=== PATIENT | female | born 1960 | race Caucasian/White ===

== ENCOUNTER 2016-09-24 08:29 | Day surgery (SDC) | payer BC ==
[2016-09-24] MEDS ORDERED: LIDOCAINE 2% MDV (20MG/ML) 20ML VIAL IV ONE (12:00)
[2016-09-24] MEDS ORDERED: PROPOFOL 10 MG/ML VIAL IV ONE (12:00)
--- NOTE | 2016-09-28 10:20 | Operative Note ---
DATE OF SURGERY: 09/24/2016 REFERRING PROVIDER: Dr. Sal Moser PREOPERATIVE DIAGNOSIS: Dysphagia and heartburn. POSTOPERATIVE DIAGNOSES: 1. Nonerosive antral gastritis. 2. Gastric fundic polyps. 3. Irregular Z-line. OPERATION: ESOPHAGOGASTRODUODENOSCOPY with biopsy and Higgins dilation. PROCEDURE: After informed consent was obtained, the patient was placed in the left lateral decubitus position in the endoscopy suite, sedated and monitored by the Department of Anesthesia. Once sedated, a well-lubricated XUR050 gastroscope was placed in the posterior oropharynx and under direct visualization passed to the proximal esophagus. The endoscope was advanced to the proximal, mid and distal esophagus. The esophagus and GE junction were unremarkable other than the Z-line, which was irregular and located at the level of the diaphragmatic hiatus. There was no hiatal hernia noted. The gastric body and antrum were inspected. There were mild erythematous changes in the antrum. The pylorus, duodenal bulb and sweep were unremarkable. J-turn views of the proximal stomach revealed several small polyps, which were biopsied. The antrum was biopsied. The GE junction was biopsied. At this point, a 52-[place] Higgins dilator was passed through the GE junction and removed. There was minimal to resistance noted. The endoscope was reinserted. There was no evidence of any esophageal tear seen. Fluid and blood from the biopsy sites were evacuated from the gastric fundus. The endoscope was removed after rinsing had been performed and no persistent bleeding sites were noted RECOMMENDATIONS: The patient should continue her current medical program. As always, thank you for allowing me to participate in the health care of your patients. Zoltan Ponce DO CC: SAL Browning
== END 2016-09-24 10:52 | disposition home or self-care (01) ==
LOC: HOP 08:29
PROVIDERS: ATTEND Internal Medicine Gastroenterology
DX: R13.19 Other dysphagia (principal); K29.30 Chronic superficial gastritis without bleeding; D13.1 Benign neoplasm of stomach; K31.89 Other diseases of stomach and duodenum

== ENCOUNTER 2017-09-13 08:44 | Day surgery (SDC) | payer BC ==
[~2017-09-13 08:44] MED LIST: ACETAMINOPHEN 1,000 MG/100 ML BTL IV ONE; FAMOTIDINE 20MG TABLET PO ONE; MECLIZINE 25 MG TABLET PO ONE; METOCLOPRAMIDE 10 MG TABLET PO ONE
[2017-09-13] MEDS ORDERED: PROPOFOL 10 MG/ML VIAL IV ONE (08:45)
[2017-09-13] MEDS ORDERED: BUPIVACAINE 0.75% W/EPI MPF 30ML VIAL IVP ONE (08:45)
[2017-09-13] MEDS ORDERED: HYDROCODONE/APAP 5/325MG TABLET PO ONE (08:45)
[2017-09-13] MEDS ORDERED: NEOSTIGMINE 1 MG/1 ML,10ML VIAL IV ONE (08:45)
[2017-09-13] MEDS ORDERED: METOCLOPRAMIDE HCL 10 MG/2 ML VIAL IVP ONE (08:45)
[2017-09-13] MEDS ORDERED: ROCURONIUM BROMIDE 50MG/5ML VIAL IV ONE (08:45)
[2017-09-13] MEDS ORDERED: GLYCOPYRROLATE 0.2 MG/ML ML IV ONE (08:45)
[2017-09-13] MEDS ORDERED: FENTANYL PF 100MCG/2ML VIAL IV ONE (08:45)
[2017-09-13] MEDS ORDERED: ONDANSETRON HCL IV 4 MG/2 ML VIAL IVP ONE (08:45)
[2017-09-13] MEDS ORDERED: MIDAZOLAM HCL 2MG/2ML VIAL IV ONE (08:45)
[2017-09-13] MEDS ORDERED: LIDOCAINE 2% MDV (20MG/ML) 20ML VIAL IV ONE (08:45)
[2017-09-13] MEDS ORDERED: SUCCINYLCHOLINE 20 MG/ML 10ML IVP ONE (08:45)
[2017-09-13] MEDS ORDERED: SCOPOLAMINE 1 PATCH TDSY TD ONE (08:45)
--- NOTE | 2017-09-14 09:50 | Operative Note ---
DATE OF SURGERY: 09/13/2017 Surgeon: Chris Fung DO PREOPERATIVE DIAGNOSIS: Cholelithiasis and chronic cholecystitis. POSTOPERATIVE DIAGNOSIS: Cholelithiasis and chronic cholecystitis. OPERATION: Laparoscopic cholecystectomy. Indication: The patient is a 56-year-old female whom I saw in the clinic with ongoing right subcostal postprandial pain. Imaging studies were consistent with cholelithiasis. We did discuss cholecystectomy versus medical management. She desired surgical intervention. Risks include but are not limited to bleeding, infection, ductal injury, possible conversion to open, postoperative bile leak. She understood this fully. PROCEDURE: Therefore, after consent was signed and questions answered, she was taken to the operating room and placed in a supine position. General anesthesia was administered per the department of anesthesia. The patient's abdomen was prepped and draped in the usual sterile fashion. The patient had undergone a prior midline laparotomy incision. Therefore, I did elect to go in a supraumbilical position. Therefore, this area was anesthetized with a total of 3 mL of 0.25% Sensorcaine with epinephrine. A 2 cm incision was made. This was carried down to the anterior rectus fascia. This was incised. Belinda clamps were placed on the fascial edges and brought up into the wound. Stay sutures of 0 Vicryl were placed. Posterior rectus sheath was identified and incised. The peritoneal cavity was entered bluntly. At this time, a 10 mm blunt Trevor port was placed. Adequate pneumoperitoneum was established. Under direct visualization, additional 5 mm epigastric and two 5 mm right subcostal ports were placed. The patient was rotated into reverse Trendelenburg, rotation to left. The gallbladder was identified. This was retracted in a cephalad and lateral direction opening up the angle of Calot. There were some dense anterior adhesions which were taken down bluntly. Due to the paucity of visceral fat, I could clearly see the common bile duct medially. This was avoided at all times. The hepatocystic triangle was thoroughly dissected out. The distal half of the gallbladder was released from the cystic plate elongating a retro-cystic window. The cystic duct and cystic artery were clearly identified. There was no aberrant anatomy, no posterior ductal structures. Each one was doubly clipped and cut in a standard fashion. Gallbladder was then taken off the liver bed with Wilber harmonic. At this time, the right upper quadrant was rechecked and found to be hemostatic. No bleeding. No bile leak. No bowel injury noted. The patient was leveled out. The pneumoperitoneum was released. All ports were removed. The fascia was closed with 0 Vicryl in a [id number] fashion. The skin of all ports was closed with 4-0 Vicryl. The patient was taken to the recovery room in satisfactory condition. HUGH
== END 2017-09-13 12:09 | disposition home or self-care (01) ==
LOC: SUR 08:44
PROVIDERS: ATTEND Surgery
DX: K80.10 Calculus of gallbladder with chronic cholecystitis without obstruction (principal)
CPT/HCPCS: 47562; 00790; J2405; J3010; J3490; J0330; J2710; J2765

== ENCOUNTER 2018-01-20 07:37 | Day surgery (SDC) | payer BC ==
[2018-01-20] MEDS ORDERED: FENTANYL PF 100MCG/2ML VIAL IV ONE (07:38)
[2018-01-20] MEDS ORDERED: PROPOFOL 10 MG/ML VIAL IV ONE (07:38)
[2018-01-20] MEDS ORDERED: ONDANSETRON HCL IV 4 MG/2 ML VIAL IVP ONE (07:38)
[2018-01-20] MEDS ORDERED: LIDOCAINE 2% MDV (20MG/ML) 20ML VIAL IV ONE (07:38)
--- NOTE | 2018-01-21 09:30 | Operative Note ---
DATE OF SURGERY: 01/20/2018 OPERATION: ESOPHAGOGASTRODUODENOSCOPY with biopsy. PREOPERATIVE DIAGNOSIS: Salvador's. POSTOPERATIVE DIAGNOSIS: Short-segment Salvador's. PROCEDURE: After informed consent was obtained from the patient, she was placed in the left lateral decubitus position in the endoscopy suite, sedated and monitored by the department of anesthesia. A well-lubricated [id number] gastroscope was placed in the posterior oropharynx and under direct visualization passed to the proximal esophagus. The endoscope was advanced through the proximal, mid, and distal esophagus. The GE junction was slightly irregular. No ulcers, erosions, strictures, varices, or mass lesions were seen. The remainder of the esophagus appeared normal. The gastric body, antrum, pylorus, duodenal bulb and sweep were otherwise unremarkable. J-turn views of the proximal stomach were unrevealing. The endoscope was straightened and retracted to the GE junction where biopsies were obtained in 4-quadrant fashion. No excessive bleeding was noted. The endoscope was removed from the patient with no new findings noted. RECOMMENDATIONS: The patient shoulder avoid tobacco products. Should continue her daily proton pump inhibitor therapy. If no dysplasia is found, a repeat upper endoscopy in 3 years would be suggested. As always, thank you for allowing me to participate in the healthcare of your patients. CC: Dr. Nelly REESE
== END 2018-01-20 09:23 | disposition home or self-care (01) ==
LOC: HOP 07:37
PROVIDERS: ATTEND Internal Medicine Gastroenterology
DX: K22.70 Barrett's esophagus without dysplasia (principal); E78.00 Pure hypercholesterolemia, unspecified
CPT/HCPCS: 43235; 00731; J2405; J3010

== ENCOUNTER 2018-03-23 12:07 | Emergency (ER) | payer BC ==
--- NOTE | 2018-03-23 12:30 | Emergency Department Record ---
History of Present Illness - General Chief Complaint: Shortness of breath Stated Complaint: SOB Time Seen by Provider: 03/23/18 12:19 Source: Patient, RN notes reviewed Mode of Arrival: Ambulatory - History of Present Illness Initial Comments: sob and right leg swollen 3 weeks ago and 3 days ago had a venous dopler which showed a DVT and she is worried about her breathing and wants to be checked for a PE. Pulse ox good and her leg edema is better . She is on xarelto 15 mg twice a day currently. Onset/Timin -: Week(s) Consistency: Constant Improves With: Nothing Worsens With: Nothing Known History Of: DVT Context: Other Associated Symptoms: Denies other symptoms Treatments Prior to Arrival: Other - Related Data Home Medications Medication Instructions Recorded Confirmed Last Taken Rivaroxaban [Xarelto] 15 mg PO BID 03/23/18 03/23/18 03/23/18 Allergies Allergy/AdvReac Type Severity Reaction Status Date / Time Sulfa (Sulfonamide Allergy Mild HIVES Verified 03/23/18 12:21 Antibiotics) morphine AdvReac NAUSEA AND Verified 03/23/18 12:21 VOMITING Travel Screening - Travel/Exposure Within Last 30 Days Have you traveled within the last 30 days?: No - Travel/Exposure Within Last Year Have you traveled outside the [place] in the last year?: No - Additonal Travel Details Have you been exposed to anyone with a communicable illness?: No Review of Systems Reviewed: No additional complaints except as noted below Constitutional: Reports: As per HPI. Denies: Chills, Fever, Malaise, Night sweats, Weakness, Weight change Eyes: Reports: As per HPI. Denies: Eye discharge, Eye pain, Photophobia, Vision change ENT: Reports: As per HPI. Denies: Congestion, Dental pain, Ear pain, Epistaxis , Hearing loss, Throat pain Respiratory: Reports: As per HPI, Dyspnea. Denies: Cough, Hemoptysis, Stridor, Wheezes Cardiovascular: Reports: As per HPI. Denies: Arrhythmia, Chest pain, Dyspnea on exertion, Edema, Murmurs, Orthopnea, Palpitations, Paroxysmal nocturnal dyspnea, Rheumatic Fever, Syncope Endocrine: Reports: As per HPI. Denies: Fatigue, Heat or cold intolerance, Polydipsia, Polyuria Gastrointestinal: Reports: As per HPI. Denies: Abdominal pain, Constipation, Diarrhea, Hematemesis, Hematochezia, Melena, Nausea, Vomiting Genitourinary: Reports: As per HPI. Denies: Abnormal menses, Discharge, Dyspareunia, Dysuria, Frequency, Hematuria, Incontinence, Retention, Urgency Musculoskeletal: Reports: As per HPI. Denies: Arthralgia, Back pain, Gout, Joint swelling, Myalgia, Neck pain Skin: Reports: As per HPI. Denies: Bruising, Change in color, Change in hair/ nails, Lesions, Pruritus, Rash Neurological: Reports: As per HPI. Denies: Abnormal gait, Confusion, Headache, Numbness, Paresthesias, Seizure, Tingling, Tremors, Vertigo, Weakness Psychiatric: Reports: As per HPI. Denies: Anxiety, Auditory hallucinations, Depression, Homicidal thoughts, Suicidal thoughts, Visual hallucinations Hematological/Lymphatic: Reports: As per HPI. Denies: Anemia, Blood Clots, Easy bleeding, Easy bruising, Swollen glands Past Medical History - SOCIAL HISTORY Smoking Status: Never smoker Alcohol Use: Occasional Drug Use: None - RESPIRATORY Hx Respiratory Disorders: No - CARDIOVASCULAR Hx Cardio Disorders: Yes Hx Deep Vein Thrombosis: Yes - NEURO Hx Neuro Disorders: No - GI Hx GI Disorders: Yes Hx Abdominal Pain: No Hx Liver Disease: Yes (fatty liver) Comment:: barretts esophagus - Hx Genitourinary Disorders: Yes Hx Kidney Stones: Yes (currently- having shock wave tx 01/11/18) Comment:: s/p hyst - ENDOCRINE Hx Endocrine Disorders: No - MUSCULOSKELETAL Hx Musculoskeletal Disorders: No - PSYCH Hx Psych Problems: No - HEMATOLOGY/ONCOLOGY Hx Hematology/Oncology Disorders: No Family Medical History Any Significant Family History?: No Hx Cancer: Mother, Brother/Sister *Cancer Comment: mother & brother-leukemia, sister-breast Hx Heart Disease: Father, Children Hx HTN: Father Hx Resp Disorders: Father Physical Exam - General General Appearance: Alert, Oriented x3, Cooperative, No acute distress - Head Head exam: Normal inspection - Eye Eye exam: Normal appearance, PERRL Pupils: Normal accommodation - ENT ENT exam: Normal exam, Mucous membranes moist, Normal external ear exam, Normal orophraynx, TM's normal bilaterally Ear exam: Normal external inspection. negative: External canal tenderness Nasal Exam: Normal inspection. negative: Discharge, Sinus tenderness Mouth exam: Normal external inspection, Tongue normal Teeth exam: Normal inspection. negative: Dental caries Throat exam: Normal inspection. negative: Tonsillar erythema, Tonsillar exudate - Neck Neck exam: Normal inspection, Full ROM. negative: Tenderness - Respiratory Respiratory exam: Normal lung sounds bilaterally. negative: Respiratory distress - Cardiovascular Cardiovascular Exam: Regular rate, Normal rhythm, Normal heart sounds - GI/Abdominal GI/Abdominal exam: Soft, Normal bowel sounds. negative: Tenderness - Rectal Rectal exam: Deferred - exam: Deferred - Extremities Extremities exam: Normal inspection, Full ROM, Normal capillary refill. negative: Tenderness - Back Back exam: Reports: Normal inspection, Full ROM. Denies: Muscle spasm, Rash noted, Tenderness - Neurological Neurological exam: Alert, Normal gait, Oriented X3, Reflexes normal - Psychiatric Psychiatric exam: Normal affect, Normal mood - Skin Skin exam: Dry, Intact, Normal color, Warm Course Vital Signs 03/23/18 12:14 Temperature 98.0 F Pulse Rate 76 Respiratory 18 Rate Blood Pressure 150/78 Pulse Ox 97 Medical Decision Making - Data Complexity MDM Data: X-Ray Ordered and/or Reviewed (CT chest negative for a PE and small granuloma right uppe lobe) Disposition Clinical Impression: DVT (deep venous thrombosis) Qualifiers: DVT location: lower extremity Affected thrombotic vein of extremity: popliteal Chronicity: acute Laterality: right Qualified Code(s): I82.431 - Acute embolism and thrombosis of right popliteal vein Dyspnea Qualifiers: Dyspnea type: unspecified Qualified Code(s): R06.00 - Dyspnea, unspecified Disposition: Home, Self-Care Condition: (1) Good Instructions: Deep Vein Thrombosis Prevention (ED) Additional Instructions: follow up with family in one week continue rosina script for compression socks Forms: Patient Portal Access Time of Disposition: 13:57 Quality - Quality Measures Quality Measures: N/A - Blood Pressure Screening Does Patient Have Any of the Following: No Blood Pressure Classification: Hypertensive Reading Systolic Measurement: 150 Diastolic Measurement: 78 Screening for High Blood Pressure: < First Hypertensive BP, F/U Documented > [ G8950] First Hypertensive Follow-up Interventions: Referral to alternative/primary care provider.
--- NOTE | 2018-03-24 14:06 | CT ANGIOGRAM REPORT ---
EXAM: CTA OF THE CHEST WITH CONTRAST WITH POST PROCESSING HISTORY: SHORTNESS OF BREATH WITH COUGH FOR THREE WEEKS, RIGHT LOWER EXTREMITY DVT DIAGNOSED TWO DAYS AGO, POSSIBLE PE. TECHNIQUE: CTA of the chest was performed following the intravenous administration of iodated contrast media. Please see the medical record for contrast specifics. Post processing on an independent workstation was performed with multiple 3D MIP series obtained. Comparison: No prior chest CT. Comparison is made with the chest x-ray dated . FINDINGS: No definite PE identified. No thoracic aortic aneurysm or dissection identified. No pleural or pericardial effusion evident aside from a small amount of fluid in the superior pericardial recess. No definite hilar or mediastinal adenopathy is seen. No pneumothorax evident. Some mild spurring in the thoracic spine. Small granuloma right upper lobe. IMPRESSION: 1. NO DEFINITE PE IDENTIFIED. 2. SMALL CALCIFIED GRANULOMA RIGHT UPPER LOBE. 3. NO ACUTE INFILTRATE OR PNEUMOTHORAX EVIDENT. JOB NUMBER: [id number] MTDD
== END 2018-03-23 14:17 | disposition home or self-care (01) ==
LOC: ER 12:07
DX: I82.431 Acute embolism and thrombosis of right popliteal vein (principal); R06.00 Dyspnea, unspecified; Z79.01 Long term (current) use of anticoagulants
CPT/HCPCS: 99283 ×2; 71275; Q9967

== ENCOUNTER 2018-08-08 10:07 | Day surgery (SDC) | payer BC ==
[2018-08-08] MEDS ORDERED: PROPOFOL 10 MG/ML VIAL IV ONE (10:08)
[2018-08-08] MEDS ORDERED: LIDOCAINE 2% MDV (20MG/ML) 20ML VIAL IV ONE (10:08)
--- NOTE | 2018-08-08 16:50 | Operative Note ---
DATE OF SURGERY: 08/08/2018 OPERATION: COLONOSCOPY to the cecum with cold biopsy forceps polypectomy x2. INDICATION: Colorectal cancer screening. The patient did have an episode lasting approximately 3 weeks of diarrhea which completely resolved. She presents at this time for screening. Her last examination was more than 10 years ago. ANESTHESIA: Intravenous sedation was administered by the department of anesthesiology and included Diprivan titrated to effect. PROCEDURE: Following informed consent from this alert individual including a discussion of the risks and benefits of the procedure and an opportunity for the patient to ask questions, the patient was in the left lateral decubitus position. A digital rectal examination was performed. No abnormalities were noted. Following this, the Olympus [id number] video colonoscope was inserted into the rectum without resistance. The rectal mucosa had a normal appearance with normal folds and distensibility. The colonoscope was advanced up through the colon to the level of the cecum without much difficulty. Throughout the bowel the mucosa appeared normal, the folds were normal, and the bowel was fairly well distensible. The colon preparation was good. The cecum was defined by noting the appendiceal orifice and ileocecal valve. Retroflexion in the cecum was endoscopic unremarkable. From the base of the cecum, the colonoscope was then slowly withdrawn. No changes were noted until the rectum as reached. In the distal rectum, there were 2 diminutive polyps noted each measuring 3 mm in size and each removed with cold biopsy forceps. No other changes were appreciated. The endoscope was straightened and removed. The patient tolerated the procedure well and was returned to the recovery area in stable condition. IMPRESSION: 1. Two diminutive rectal polyps removed with cold biopsy forceps. 2. Otherwise unremarkable colonoscopy to the cecum. RECOMMENDATIONS: Further recommendations will be forthcoming pending results of pathology obtained today. Followup will also be with Dr. Villegas. As always, thank you for allowing me to participate in the care of your patient. CC: Dr. Enmanuel REESE
== END 2018-08-08 11:52 | disposition home or self-care (01) ==
LOC: HOP 10:07
PROVIDERS: ATTEND Internal Medicine Gastroenterology
DX: Z12.11 Encounter for screening for malignant neoplasm of colon (principal); K62.1 Rectal polyp; E78.00 Pure hypercholesterolemia, unspecified

== ENCOUNTER 2018-12-26 16:09 | Emergency (ER) | payer BC ==
--- NOTE | 2018-12-26 16:26 | Emergency Department Record ---
History of Present Illness - General Chief complaint: Flank Pain Stated complaint: POSSIBLE KIDNEY STONE Time Seen by Provider: 12/26/18 16:19 Source: Patient Mode of Arrival: Ambulatory Limitations: No limitations - History of Present Illness Initial comments: The patient is here due to a one day hx of pelvic cramping with mild nausea. She denies any fever, back or flank pain, dysuria, or hematuria. The patient has had a hx of kidney stones in the past but had different symptoms then. She was over at the and they possibly found blood in the urine so the patient was sent here for evaluation. Complaint: Other Onset/Timin -: Days(s) Location: Suprapubic Radiation: Non-radiating Severity: Mild Severity scale (1-10): 3 Quality: Cramping Consistency: Constant Improves with: None Worsens with: None Patient : No Associated Symptoms: Nausea/vomiting - Related Data Home Medications Medication Instructions Recorded Confirmed Last Taken Omeprazole [Prilosec] 20 mg PO DAILY 12/26/18 12/26/18 Unknown Previous Rx's Medication Instructions Recorded Ciprofloxacin HCl [Cipro] 500 mg PO Q12HR #14 tablet 12/26/18 Allergies Allergy/AdvReac Type Severity Reaction Status Date / Time Sulfa (Sulfonamide Allergy Mild HIVES Verified 12/26/18 16:16 Antibiotics) morphine AdvReac NAUSEA AND Verified 12/26/18 16:16 VOMITING Travel Screening - Travel/Exposure Within Last 30 Days Have you traveled within the last 30 days?: No Review of Systems Constitutional: Denies: Chills, Fever Eyes: Denies: Eye discharge ENT: Denies: Congestion Respiratory: Denies: Cough, Dyspnea Cardiovascular: Denies: Arrhythmia Endocrine: Denies: Fatigue Gastrointestinal: Reports: Nausea Genitourinary: Denies: Dysuria Musculoskeletal: Denies: Back pain Skin: Denies: Bruising Past Medical History - SOCIAL HISTORY Smoking Status: Never smoker Alcohol Use: None Drug Use: None - RESPIRATORY Hx Respiratory Disorders: No - CARDIOVASCULAR Hx Cardio Disorders: Yes Hx Abnormal EKG: No Hx Chest Pain: No Hx Deep Vein Thrombosis: Yes Hx Edema: No Hx Heart Attack: No Hx Irregular Heartbeat: No Hx Palpitations: No Comment:: high cholesterol - NEURO Hx Neuro Disorders: No - GI Hx GI Disorders: Yes Hx Abdominal Pain: No Hx Crohn's Disease: No Hx Reflux: Yes Hx Hiatal Hernia: No Hx Irritable Bowel: No Hx Liver Disease: Yes (fatty liver) Hx Nausea/Vomiting: No Hx Pancreatitis: No Hx Ulcer: No Comment:: barretts esophagus - Hx Genitourinary Disorders: Yes Hx Kidney Stones: Yes (currently- having shock wave tx 01/11/18) Comment:: s/p hyst - ENDOCRINE Hx Endocrine Disorders: No - MUSCULOSKELETAL Hx Musculoskeletal Disorders: No - PSYCH Hx Psych Problems: No - HEMATOLOGY/ONCOLOGY Hx Hematology/Oncology Disorders: No Family Medical History Any Significant Family History?: Yes Hx Cancer: Mother, Brother/Sister *Cancer Comment: mother & brother-leukemia, sister-breast Hx Heart Disease: Father, Children Hx HTN: Father Hx Resp Disorders: Father Physical Exam - General General Appearance: Alert, Oriented x3, Cooperative, No acute distress - Head Head exam: Atraumatic, Normocephalic, Normal inspection - Eye Eye exam: Normal appearance, PERRL, EOMI - Neck Neck exam: Normal inspection, Full ROM. negative: Tenderness - Respiratory Respiratory exam: Normal lung sounds bilaterally. negative: Respiratory distress - Cardiovascular Cardiovascular Exam: Regular rate, Normal rhythm, Normal heart sounds - GI/Abdominal GI/Abdominal exam: Soft, Normal bowel sounds. negative: Rebound, Rigid, Tenderness - Extremities Extremities exam: Normal inspection, Full ROM, Normal capillary refill. negative: Tenderness - Back Back exam: Reports: Normal inspection. Denies: CVA tenderness (R), CVA tenderness (L), Paraspinal tenderness, Vertebral tenderness - Neurological Neurological exam: Alert, Normal gait, Oriented X3. negative: Abnormal gait, Motor sensory deficit - Psychiatric Psychiatric exam: negative: Anxious - Skin Skin exam: negative: Rash Course Vital Signs 12/26/18 16:11 Temperature 98.3 F Pulse Rate 71 Respiratory 20 Rate Blood Pressure 136/80 Pulse Ox 99 - Reevaluation(s) Reevaluation #1: The patient is doing very well at this time. She is resting comfortably with a normal temp and no pain presently. Due to the CT results and clearly infected urine I did feel the need to consult Dr. Adler (Urology). He is in [facility] tomorrow and would like to see the patient in the office tomorrow morning here. The patient is to be seen in the [facility] before noon tomorrow and is to take a Cipro in the morning. She is also to remain NPO past midnight except for her Cipro. If she develops any pain, fever, or vomiting tonight she is to proceed to the ER in [place]. 12/26/18 17:37 12/26/18 17:38 Medical Decision Making - Data Complexity MDM Data: Labs Ordered and/or Reviewed, X-Ray Ordered and/or Reviewed - Lab Data Result diagrams: 12/26/18 16:25 12/26/18 16:25 - Radiology Data Radiology results: Report reviewed (CT: 4.3 x 4.3 x 4.9 MM stone R proximal ureter. ) Disposition Disposition: Discharge Clinical Impression: Ureter, calculus Disposition: Home, Self-Care Condition: (2) Stable Instructions: Flank Pain (ED) Additional Instructions: Please see Dr. Adler in the [facility] tomorrow morning as planned. Please stay NPO past midnight but do take the Cipro in the morning. If you develop any severe pain, fever, or vomiting tonight, please return to the ER. If for some reason you do not hear from the [facility] in the morning for an appointment please return to the ER for treatment and consultation. Prescriptions: Ciprofloxacin HCl [Cipro] 500 mg PO Q12HR #14 tablet Referrals: [facility] [Provider Group] Forms: Patient Portal Access Time of Disposition: 17:50 Quality - Quality Measures Quality Measures: N/A - Blood Pressure Screening View Details: Yes Does Patient Have Any of the Following: No Blood Pressure Classification: Pre-Hypertensive BP Reading Systolic Measurement: 136 Diastolic Measurement: 80 Screening for High Blood Pressure: < Pre-Hypertensive BP, F/U Documented > [ G8950] Pre-Hypertensive Follow-up Interventions: Referral to alternative/primary care provider.
[2018-12-26 16:34] LABS: BASO % 0.6 % (0-6); EOS % 1.2 % (0-6); GRAN % 51.3 % (47-80); HEMOGLOBIN 14.3 gm/dl (11.6-16.0); LYMPH % 36.2 % (16-45); MEAN CELL VOLUME 99.5 fl (81-97); MEAN CORPUSCULAR HEMOGLOBIN 33.9 pg (27-33); MEAN PLATELET VOLUME 8.5 fl (7.4-10.4); MONO % 10.7 % (0-9); PLATELET COUNT 181 K/uL (130-400); RED BLOOD COUNT 4.22 M/uL (3.80-5.40); RED CELL DISTRIBUTION WIDTH 13.9 % (11.5-14.5); URINE BILIRUBIN NEGATIVE (NEGATIVE); URINE BLOOD LARGE (NEGATIVE); URINE COLOR YELLOW; URINE GLUCOSE (UA) NEGATIVE (NEGATIVE); URINE KETONE NEGATIVE (NEGATIVE); URINE LEUKOCYTE ESTERASE SMALL (NEGATIVE); URINE NITRITE NEGATIVE (NEGATIVE); URINE UROBILINOGEN 0.2 E.U./dL (0.20 - 1.00); WHITE BLOOD COUNT W/O DIFF 6.4 K/uL (4.2-12.2)
[2018-12-26 16:41] LABS: URINE APPEARANCE CLOUDY
[2018-12-26 16:42] LABS: URINE BACTERIA 3+; URINE EPITHELIAL CELLS 36 - 50 (FEW)
[2018-12-26 16:45] LABS: BLOOD UREA NITROGEN 10 mg/dL (6-20); CREATININE 0.6 mg/dL (0.5-0.9); EST GLOMERULAR FILTRATION RATE > 60 mL/min; TOTAL PROTEIN 7.2 g/dL (6.6-8.7)
[2018-12-26 16:47] LABS: GLUCOSE,RANDOM 105 mg/dL (74-109)
[2018-12-26 16:50] LABS: ALBUMIN 4.5 g/dL (4.0-5.0); ALKALINE PHOSPHATASE 64 U/L (35-104); ALT/SGPT 40 U/L (<33); AST/SGOT 51 U/L (10.0-35.0); BILIRUBIN,DIRECT 0.2 mg/dL (0-0.3)
[2018-12-26 16:59] LABS: URINE BILIRUBIN SMALL (NEGATIVE); URINE BLOOD LARGE (NEGATIVE); URINE COLOR YELLOW; URINE GLUCOSE (UA) NEGATIVE (NEGATIVE); URINE KETONE NEGATIVE (NEGATIVE); URINE LEUKOCYTE ESTERASE SMALL (NEGATIVE); URINE NITRITE NEGATIVE (NEGATIVE); URINE UROBILINOGEN 0.2 E.U./dL (0.20 - 1.00)
[2018-12-26 17:05] LABS: URINE APPEARANCE CLOUDY
[2018-12-26] MEDS ORDERED: CEFTRIAXONE 1GM/50ML BAG 1 GM/50 ML BAG IVPB ONE (17:18)
[2018-12-26] MEDS ORDERED: CIPROFLOXACIN HCL 500 MG TABLET PO ONE (17:35)
[2018-12-26] MEDS ORDERED: 0.9 % SODIUM CHLORIDE 1,000 ML BAG IV ONE (17:38)
[2018-12-26] MEDS ORDERED: KETOROLAC 30 MG/ML VIAL IVP ONE (17:58)
--- NOTE | 2018-12-28 09:00 | CT SCAN REPORT ---
EXAM: CT OF THE ABDOMEN AND PELVIS WITHOUT CONTRAST HISTORY: ABDOMINAL CRAMPING SINCE LAST NIGHT. TECHNIQUE: Helical CT examination of the abdomen and pelvis was performed without oral or intravenous contrast administration. Lack of oral and IV contrast utilization limits evaluation of the bowel and solid viscera respectively. Comparison: CT of the abdomen and pelvis without contrast dated 12/14/15. FINDINGS: Minor linear scarring versus atelectasis within the anterior lung bases. Minor dependent atelectasis in each lung base. No pleural or pericardial effusion. The heart is not enlarged. There is mild diffuse decreased density of the liver relative to the spleen consistent with mild hepatic stenosis. No suspicious focal hepatic abnormality. The gallbladder is surgically absent. No biliary ductal dilatation is demonstrated. The spleen, pancreas, and adrenal glands are normal in appearance. The kidneys are normal in size and smoothly marginated. No renal mass is identified. The previously demonstrated nonobstructing calculus in the lower pole of the left kidney is no longer identified. Previously demonstrated calculus in the lower pole of the right kidney is also no longer identified though there is now noted a calculus within the proximal right ureter measuring approximately 4.3 x 4.3 x 4.9 mm. No gross upstream dilatation is seen. There is a possible tiny nonobstructing calculus in the lower pole of the right kidney best seen on coronal images. No other evidence of ureteral calculus. There is a small calcification near the posterior margin of the urinary bladder, right of midline which is likely a phlebolith rather than a distal ureteral calculus. This is, however, not visualized on the prior examination. No intrinsic urinary bladder abnormality is seen though evaluation is limited by lack of distention. No new pelvic mass, lymphadenopathy, or free pelvic fluid. No gross bowel dilatation nor bowel wall thickening. The appendix is surgically absent as is the uterus. No new lytic or blastic bone lesion. There are degenerative changes again noted scattered within the visualized spine most pronounced at the lumbosacral junction where they are moderate in degree. IMPRESSION: 1. PREVIOUSLY DEMONSTRATED NONOBSTRUCTING CALCULI WITHIN THE LOWER POLE OF EACH KIDNEY NOT REDEMONSTRATED THOUGH ON CORONAL IMAGES THERE MAY BE A TINY NONOBSTRUCTING CALCULUS IN THE LOWER POLE OF THE RIGHT KIDNEY. 2. 4.3 X 4.3 X 4.9 MM CALCULUS IN THE PROXIMAL RIGHT URETER WITHOUT ASSOCIATED GROSS UPSTREAM DILATATION. 3. TINY CALCIFICATION ALONG THE POSTERIOR MARGIN OF THE URINARY BLADDER RIGHT OF MIDLINE IS LIKELY A PHLEBOLITH RATHER THAN A URETERAL CALCULUS. 4. STATUS POST CHOLECYSTECTOMY, HYSTERECTOMY, AND APPENDECTOMY. 5. HEPATIC STEATOSIS. JOB NUMBER: [id number] [facility]
== END 2018-12-26 18:28 | disposition home or self-care (01) ==
LOC: ER 16:09
DX: N20.1 Calculus of ureter (principal); R11.0 Nausea; Z87.442 Personal history of urinary calculi
CPT/HCPCS: 99284 ×2; 96365; 96375; 85025; 80076; 80048; 81001; 81003; 74176; J1885; J0696; J7030

== ENCOUNTER 2019-03-10 06:19 | Emergency (ER) | payer BC ==
[2019-03-10] MEDS ORDERED: ONDANSETRON HCL IV 4 MG/2 ML VIAL IVP ONE (06:29)
[2019-03-10] MEDS ORDERED: KETOROLAC 30 MG/ML VIAL IVP ONE (06:29)
[2019-03-10] MEDS ORDERED: 0.9 % SODIUM CHLORIDE 1000ML 1,000 ML IV SCH (06:30)
--- NOTE | 2019-03-10 06:36 | Emergency Department Record ---
History of Present Illness - General Chief complaint: Flank Pain Stated complaint: FLANK PAIN Time Seen by Provider: 03/10/19 06:28 Source: Patient Mode of Arrival: Ambulatory Limitations: No limitations - History of Present Illness Initial comments: 58 yo female presents to ED for evaluation of left-sided flank pain symptoms that began several hours ago. Patient reports history of kidney stones,recently underwent laser treatment with Dr. Adler and bilateral stent placement/removal for left sided calculi. Patient reports that her pain symptoms increased 2-3 hours ago, denies fevers, chills, nausea, or vomiting. Onset/Timin -: Hour(s) Severity: Severe Severity scale (1-10): 10 Quality: Sharp Consistency: Constant Improves with: None Worsens with: None Patient : No Associated Symptoms: Denies other symptoms - Related Data Sexually active: No Home Medications Medication Instructions Recorded Confirmed Last Taken Omeprazole 20 mg PO DAILY 03/10/19 03/10/19 Unknown Tramadol HCl 50 mg PO ASDIR 03/10/19 03/10/19 Unknown Previous Rx's Medication Instructions Recorded Hydrocodone/Acetaminophen [[place] 1 each PO Q6H PRN #10 tablet 03/10/19 7.5-325 Tablet] Tamsulosin HCl [Flomax] 0.4 mg PO DAILY #15 cap.er.24h 03/10/19 Allergies Allergy/AdvReac Type Severity Reaction Status Date / Time Sulfa (Sulfonamide Allergy Mild HIVES Verified 03/10/19 07:23 Antibiotics) morphine AdvReac NAUSEA AND Verified 03/10/19 07:23 VOMITING Travel Screening - Travel/Exposure Within Last 30 Days Have you traveled within the last 30 days?: No Review of Systems Constitutional: Denies: Chills, Fever, Malaise, Night sweats Eyes: Denies: Eye discharge, Eye pain ENT: Denies: Congestion, Ear pain, Epistaxis Respiratory: Denies: Cough, Dyspnea Cardiovascular: Denies: Chest pain, Dyspnea on exertion Endocrine: Denies: Fatigue, Heat or cold intolerance Gastrointestinal: Denies: Abdominal pain, Nausea, Vomiting Genitourinary: Denies: Incontinence, Retention Musculoskeletal: Reports: Back pain. Denies: Arthralgia, Gout, Joint swelling Skin: Denies: Bruising, Change in color Neurological: Denies: Abnormal gait, Confusion, Headache, Seizure Psychiatric: Denies: Anxiety Hematological/Lymphatic: Denies: Anemia, Blood Clots Past Medical History - SOCIAL HISTORY Smoking Status: Never smoker Alcohol Use: None Drug Use: None - RESPIRATORY Hx Respiratory Disorders: No - CARDIOVASCULAR Hx Cardio Disorders: Yes Hx Abnormal EKG: No Hx Chest Pain: No Hx Deep Vein Thrombosis: Yes Hx Edema: No Hx Heart Attack: No Hx Irregular Heartbeat: No Hx Palpitations: No Comment:: high cholesterol - NEURO Hx Neuro Disorders: No - GI Hx GI Disorders: Yes Hx Abdominal Pain: No Hx Crohn's Disease: No Hx Reflux: Yes Hx Hiatal Hernia: No Hx Irritable Bowel: No Hx Liver Disease: Yes (fatty liver) Hx Nausea/Vomiting: No Hx Pancreatitis: No Hx Ulcer: No Comment:: barretts esophagus - Hx Genitourinary Disorders: Yes Hx Kidney Stones: Yes (currently- having shock wave tx 01/11/18) Comment:: s/p hyst - ENDOCRINE Hx Endocrine Disorders: No - MUSCULOSKELETAL Hx Musculoskeletal Disorders: No - PSYCH Hx Psych Problems: No - HEMATOLOGY/ONCOLOGY Hx Hematology/Oncology Disorders: No Family Medical History Any Significant Family History?: Yes Hx Cancer: Mother, Brother/Sister *Cancer Comment: mother & brother-leukemia, sister-breast Hx Heart Disease: Father, Children Hx HTN: Father Hx Resp Disorders: Father Physical Exam - General General Appearance: Alert, Oriented x3, Cooperative, Moderate distress Limitations: No limitations - Head Head exam: Atraumatic, Normocephalic, Normal inspection Head exam detail: negative: Abrasion, Contusion, Cuellar's sign, General tenderness, Hematoma, Laceration - Eye Eye exam: Normal appearance. negative: Conjunctival injection, Periorbital swelling, Periorbital tenderness, Scleral icterus - ENT Ear exam: negative: Auricular hematoma, Auricular trauma Nasal Exam: negative: Active bleeding, Discharge, Dried blood, Foreign body Mouth exam: negative: Drooling, Laceration, Muffled voice, Tongue elevation - Neck Neck exam: Normal inspection. negative: Meningismus, Tenderness - Respiratory Respiratory exam: Normal lung sounds bilaterally. negative: Rales, Respiratory distress, Rhonchi, Stridor - Cardiovascular Cardiovascular Exam: Regular rate, Normal rhythm, Normal heart sounds - GI/Abdominal GI/Abdominal exam: Soft. negative: Rebound, Rigid, Tenderness - Rectal Rectal exam: Deferred - exam: Deferred - Extremities Extremities exam: Normal inspection. negative: Pedal edema, Tenderness - Back Back exam: Reports: CVA tenderness (L). Denies: CVA tenderness (R) - Neurological Neurological exam: Alert, Normal gait, Oriented X3 - Psychiatric Psychiatric exam: Normal affect, Normal mood - Skin Skin exam: Normal color. negative: Abrasion Type of lesion: negative: abrasion Course Vital Signs 03/10/19 06:24 Temperature 97.9 F Pulse Rate [ 77 Pulse Ox Probe] Respiratory 20 Rate Blood Pressure 147/98 [Left Arm] Pulse Ox 99 - Reevaluation(s) Reevaluation #1: 03/10/19 07:03 Laboratory studies were reviewed and are grossly unremarkable for an acute process except for large blood in the urine. Patient is back from CT imaging, pain is still significant, Dilaudid IV ordered for analgesia. Reevaluation #2: 03/10/19 07:54 CT Abdomen and Pelvis: 4.4 x 5.4 obstructing calculus proximal left ureter with mild-moderate hydronephrosis Patient was updated on all results, reports that her pain symptoms are significantly improved. Case was discussed with Dr. Adler, recommends trial of outpatient passage with analgesia and Flomax as directed. Patient is in agreement with the plan of care as discussed. Medical Decision Making - Lab Data Result diagrams: 03/10/19 06:35 03/10/19 06:35 Disposition Disposition: Discharge Clinical Impression: Ureter, calculus Disposition: Home, Self-Care Condition: (2) Stable Instructions: Kidney Stones (ED) Additional Instructions: Return to ED if your symptoms worsen or if you have any concerns. Flomax, [place] as directed. Follow-up with Dr. Adler in 3-5 days as directed. Prescriptions: Tamsulosin HCl [Flomax] 0.4 mg PO DAILY #15 cap.er.24h Hydrocodone/Acetaminophen [[place] 7.5-325 Tablet] 1 each PO Q6H PRN #10 tablet PRN Reason: Pain - Severe (8-10) Forms: Patient Portal Access Time of Disposition: 07:58 Quality - Quality Measures Quality Measures: N/A - Blood Pressure Screening Does Patient Have Any of the Following: No Blood Pressure Classification: Hypertensive Reading Systolic Measurement: 147 Diastolic Measurement: 98 Screening for High Blood Pressure: < First Hypertensive BP, F/U Documented > [G8950] First Hypertensive Follow-up Interventions: Referral to alternative/primary care provider.
[2019-03-10 06:47] LABS: BASO % 0.6 % (0-6); EOS % 1.8 % (0-6); GRAN % 36.3 % (47-80); HEMATOCRIT 42.2 % (35.0-47.0); HEMOGLOBIN 14.6 gm/dl (11.6-16.0); LYMPH % 48.2 % (16-45); MEAN CELL VOLUME 99.1 fl (81-97); MEAN CORPUSCULAR HEMOGLOBIN 34.3 pg (27-33); MEAN CORPUSCULAR HGB CONC 34.6 g/dl (32-36); MONO % 13.1 % (0-9); PLATELET COUNT 222 K/uL (130-400); RED BLOOD COUNT 4.26 M/uL (3.80-5.40); RED CELL DISTRIBUTION WIDTH 13.4 % (11.5-14.5)
[2019-03-10 06:56] LABS: BLOOD UREA NITROGEN 10 mg/dL (6-20); CREATININE 0.7 mg/dL (0.5-0.9); EST GLOMERULAR FILTRATION RATE > 60 mL/min; TOTAL PROTEIN 7.4 g/dL (6.6-8.7)
[2019-03-10 06:58] LABS: URINE APPEARANCE CLEAR; URINE BILIRUBIN NEGATIVE (NEGATIVE); URINE BLOOD LARGE (NEGATIVE); URINE COLOR YELLOW; URINE GLUCOSE (UA) NEGATIVE (NEGATIVE); URINE KETONE TRACE (NEGATIVE); URINE LEUKOCYTE ESTERASE TRACE (NEGATIVE); URINE NITRITE NEGATIVE (NEGATIVE); URINE PROTEIN 300 mg/dL (NEGATIVE)
[2019-03-10 06:59] LABS: GLUCOSE,RANDOM 124 mg/dL (74-109)
[2019-03-10 07:01] LABS: ALB/GLOB RATIO 1.7 (1.1-1.8); ALBUMIN 4.7 g/dL (4.0-5.0); ALKALINE PHOSPHATASE 66 U/L (35-104); ALT/SGPT 62 U/L (<33); AST/SGOT 78 U/L (10.0-35.0)
[2019-03-10] MEDS ORDERED: HYDROMORPHONE HCL 2 MG/ML VIAL IVP ONE (07:03)
[2019-03-10] MEDS ORDERED: PROMETHAZINE HCL 12.5 MG in 0.9 % SODIUM CHLORIDE 100ML 100 ML IVPB ONE (07:25)
[2019-03-10 07:51] LABS: URINE URIC ACID CRYSTALS 2+ /hpf
--- NOTE | 2019-03-12 17:49 | CT SCAN REPORT ---
EXAM: CT SCAN ABDOMEN/PELVIS WO CONTRAST HISTORY: LEFT FLANK AND LEFT LOWER QUADRANT PAIN BEGINNING SEVERAL HOURS AGO. HEMATURIA. KIDNEY STONE HISTORY. PRIOR HYSTERECTOMY, APPENDECTOMY, AND CHOLECYSTECTOMY. TECHNIQUE: Thin-collimation helical CT examination of the abdomen and pelvis is performed without oral or intravenous contrast administration. Lack of oral and IV contrast utilization limits evaluation of the bowel and solid viscera, respectively. COMPARISON: CT abdomen and pelvis without contrast dated 12/26/2018. FINDINGS: The lung bases are grossly clear. No pleural or pericardial effusion. The heart is not enlarged. The liver, spleen, pancreas, and adrenal glands are normal in appearance. The gallbladder is surgically absent and there is no biliary ductal dilatation. The kidneys remain normal in position and smoothly marginated. The previously demonstrated calculus in the proximal right ureter is no longer identified. New since the prior examination is an obstructing calculus within the proximal left ureter. This measures approximately 4 x 4.4 x 5.5 mm. This causes mild to moderate hydronephrosis and minor left perinephric fat stranding. No nonobstructing renal calculus nor renal mass. The right renal collecting system is normal in appearance. No intrinsic urinary bladder abnormality is seen, though evaluation is limited by lack of distention. Multiple small calcifications are again noted within the inferior pelvis. These are consistent with phleboliths. No new pelvic mass, lymphadenopathy, or free pelvic fluid. The uterus is surgically absent. No gross bowel dilatation nor bowel wall thickening. The appendix, by history, is surgically absent. Evaluation of the wall of the colon is limited at several levels due to lack of distention. The vasculature is normal in caliber. No intraabdominal nor retroperitoneal lymphadenopathy. A tiny fat-filled umbilical hernia is present. No new lytic or blastic bone lesion. Degenerative changes are scattered within the visualized spine, most pronounced at the lumbosacral junction, where the changes are moderate. IMPRESSION: 1. A 4 X 4.4 X 5.5 MM OBSTRUCTING CALCULUS IN THE PROXIMAL LEFT URETER CAUSING MILD TO MODERATE HYDRONEPHROSIS AND MILD PERINEPHRIC FAT STRANDING. 2. PREVIOUSLY DEMONSTRATED OBSTRUCTING CALCULUS IN THE PROXIMAL RIGHT URETER IS NO LONGER PRESENT. NOT MENTIONED ABOVE IS A TOO SMALL TO CHARACTERIZE HYPODENSE FOCUS WITHIN THE LATERAL MID RIGHT KIDNEY MEASURING 6 MM. THIS IS NONSPECIFIC BUT LIKELY A CYST. 3. STATUS POST CHOLECYSTECTOMY, HYSTERECTOMY, AND APPENDECTOMY. [facility]: [id number] [facility]
== END 2019-03-10 08:05 | disposition home or self-care (01) ==
LOC: ER 06:19
DX: N13.2 Hydronephrosis with renal and ureteral calculous obstruction (principal); R10.32 Left lower quadrant pain; R31.9 Hematuria, unspecified; Z87.442 Personal history of urinary calculi
CPT/HCPCS: 99284 ×2; 99285 ×2; 96376; 96374; 96375; 96361; 85025; 80053; 81001; 74176; J1885; J2405; J1170; J2550; J7030

== ENCOUNTER 2019-03-10 17:56 | Emergency (ER) | payer BC ==
[2019-03-10] MEDS ORDERED: ONDANSETRON HCL IV 4 MG/2 ML VIAL IVP ONE (18:09)
[2019-03-10] MEDS ORDERED: HYDROMORPHONE HCL 2 MG/ML VIAL IVP ONE ×2 (18:09→19:29)
--- NOTE | 2019-03-10 18:09 | Emergency Department Record ---
History of Present Illness - General Stated Complaint: PASSING A KIDNEY STONE Time Seen by Provider: 03/10/19 18:03 Source: Patient Mode of Arrival: Ambulatory Limitations: No limitations - History of Present Illness Initial Comments: 58 yo female returns to ED for evaluation of recurrent left sided flank pain symptoms following discharge this morning following diagnosis of an obstructing ureteral calculus earlier this morning. Patient denies fevers, chills, nausea, or vomiting symptoms following discharge this morning. Patient reports recent history of lithotrypsy and ureteral stent placement/removal with Dr. Adler. Patient was prescribed Flomax and [place] for her pain symptoms earlier this morning. MD Complaint: Flank pain Onset/Timin -: Days(s) Location: L Flank Radiation: None Severity: Severe Quality: Aching Consistency: Constant Improves With: Nothing Worsens With: Nothing Associated Symptoms: Denies other symptoms - Related Data Previous Rx's Medication Instructions Recorded Hydrocodone/Acetaminophen [[place] 1 each PO Q6H PRN #10 tablet 03/10/19 7.5-325 Tablet] Tamsulosin HCl [Flomax] 0.4 mg PO DAILY #15 cap.er.24h 03/10/19 Allergies Allergy/AdvReac Type Severity Reaction Status Date / Time Sulfa (Sulfonamide Allergy Mild HIVES Verified 03/10/19 18:25 Antibiotics) morphine AdvReac NAUSEA AND Verified 03/10/19 18:25 VOMITING Review of Systems Constitutional: Denies: Chills, Fever, Malaise, Night sweats Eyes: Denies: Eye discharge, Eye pain ENT: Denies: Congestion, Ear pain, Epistaxis Respiratory: Denies: Cough, Dyspnea Cardiovascular: Denies: Chest pain, Dyspnea on exertion Endocrine: Denies: Fatigue, Heat or cold intolerance Gastrointestinal: Denies: Abdominal pain, Nausea, Vomiting Genitourinary: Denies: Incontinence, Retention Musculoskeletal: Reports: Back pain. Denies: Arthralgia, Gout, Joint swelling Skin: Denies: Bruising, Change in color Neurological: Denies: Abnormal gait, Confusion, Headache Psychiatric: Denies: Anxiety Hematological/Lymphatic: Denies: Anemia, Blood Clots Past Medical History - SOCIAL HISTORY Smoking Status: Never smoker Drug Use: None - RESPIRATORY Hx Respiratory Disorders: No - CARDIOVASCULAR Hx Cardio Disorders: Yes Hx Abnormal EKG: No Hx Chest Pain: No Hx Deep Vein Thrombosis: Yes Hx Edema: No Hx Heart Attack: No Hx Irregular Heartbeat: No Hx Palpitations: No Comment:: high cholesterol - NEURO Hx Neuro Disorders: No - GI Hx GI Disorders: Yes Hx Abdominal Pain: No Hx Crohn's Disease: No Hx Reflux: Yes Hx Hiatal Hernia: No Hx Irritable Bowel: No Hx Liver Disease: Yes (fatty liver) Hx Nausea/Vomiting: No Hx Pancreatitis: No Hx Ulcer: No Comment:: barretts esophagus - Hx Genitourinary Disorders: Yes Hx Kidney Stones: Yes (currently- having shock wave tx 01/11/18) Comment:: s/p hyst - ENDOCRINE Hx Endocrine Disorders: No - MUSCULOSKELETAL Hx Musculoskeletal Disorders: No - PSYCH Hx Psych Problems: No - HEMATOLOGY/ONCOLOGY Hx Hematology/Oncology Disorders: No Family Medical History Hx Cancer: Mother, Brother/Sister *Cancer Comment: mother & brother-leukemia, sister-breast Hx Heart Disease: Father, Children Hx HTN: Father Hx Resp Disorders: Father Physical Exam - General General Appearance: Alert, Oriented x3, Cooperative, Moderate distress Limitations: No limitations - Head Head exam: Atraumatic, Normocephalic, Normal inspection Head exam detail: negative: Abrasion, Contusion, Cuellar's sign, General tenderness, Hematoma, Laceration - Eye Eye exam: Normal appearance. negative: Conjunctival injection, Periorbital swelling, Periorbital tenderness, Scleral icterus - ENT Ear exam: negative: Auricular hematoma, Auricular trauma Nasal Exam: negative: Active bleeding, Discharge, Dried blood, Foreign body Mouth exam: negative: Drooling, Laceration, Muffled voice, Tongue elevation - Neck Neck exam: Normal inspection. negative: Meningismus, Tenderness - Respiratory Respiratory exam: Normal lung sounds bilaterally. negative: Respiratory distress, Rhonchi, Stridor, Wheezes - Cardiovascular Cardiovascular Exam: Regular rate, Normal rhythm, Normal heart sounds - GI/Abdominal GI/Abdominal exam: Soft. negative: Distended, Rebound, Rigid, Tenderness - Rectal Rectal exam: Deferred - exam: Deferred - Extremities Extremities exam: Normal inspection. negative: Pedal edema, Tenderness - Back Back exam: Reports: CVA tenderness (L). Denies: CVA tenderness (R) - Neurological Neurological exam: Alert, Normal gait, Oriented X3 - Psychiatric Psychiatric exam: Normal affect, Normal mood - Skin Skin exam: Normal color. negative: Abrasion Type of lesion: negative: abrasion Course - Reevaluation(s) Reevaluation #1: 03/10/19 18:48 UA was reviewed: RBC: TNTC WBC: 3-5 Epis: 7-10 4+ Uric Acid crystals Patient was updated on results thus far, on-call for Dr. Nayely rose for consultation. Reevaluation #2: 03/10/19 18:56 Case was discussed with Dr. Manning (Urology), will accept the patient for observation admission and surgical consultation. Disposition Disposition: Transfer Clinical Impression: Ureter, calculus Disposition: Acute Care Hospital Transfer Transfer To: [facility] Reason For Transfer: Urologic consultaiton Accepting Physician: Kerri Time Discussed w/Accepting Physician: 19:06 Condition: (2) Stable Time of Disposition: 19:06 Quality - Quality Measures Quality Measures: N/A - Blood Pressure Screening Does Patient Have Any of the Following: No Blood Pressure Classification: Pre-Hypertensive BP Reading Systolic Measurement: 124 Diastolic Measurement: 75 Screening for High Blood Pressure: < Pre-Hypertensive BP, F/U Documented > [G8950] Pre-Hypertensive Follow-up Interventions: Referral to alternative/primary care provider.
[2019-03-10 18:12] LABS: URINE APPEARANCE SL CLOUDY; URINE BILIRUBIN NEGATIVE (NEGATIVE); URINE BLOOD LARGE (NEGATIVE); URINE COLOR YELLOW; URINE GLUCOSE (UA) NEGATIVE (NEGATIVE); URINE KETONE NEGATIVE (NEGATIVE); URINE NITRITE NEGATIVE (NEGATIVE)
[2019-03-10] MEDS ORDERED: 0.9 % SODIUM CHLORIDE 1000ML 1,000 ML IV SCH (18:15)
[2019-03-10 18:16] LABS: URINE LEUKOCYTE ESTERASE TRACE (NEGATIVE)
[2019-03-10 18:23] LABS: URINE URIC ACID CRYSTALS 4+ /hpf
== END 2019-03-10 21:45 | disposition short-term general hospital (02) ==
LOC: ER 17:56
DX: N13.2 Hydronephrosis with renal and ureteral calculous obstruction (principal); R10.32 Left lower quadrant pain; Z87.442 Personal history of urinary calculi
CPT/HCPCS: 81001; J2405; J7030